=== PATIENT | male | born 1990 | race Caucasian/White ===

== ENCOUNTER 2023-04-18 05:28 | Emergency (ER) | payer BC ==
[~2023-04-18] VITALS: Ht 180.3 cm; Wt 81.6 kg
[2023-04-18] MEDS ORDERED: ONDANSETRON HCL/PF 4 MG/2 ML VIAL ONE (06:11)
[2023-04-18] MEDS ORDERED: ONDANSETRON HCL/PF 4 MG/2 ML VIAL IVP ONE (06:30)
[2023-04-18] MEDS ORDERED: IV NS 0.9% 1,000 ML BAG IV ONE (06:30)
[2023-04-18 06:53] LABS: BASOPHILS % (AUTO) 0.2 % (0.0-2.0); EOSINOPHILS % (AUTO) 0.6 % (0.0-6.0); HEMATOCRIT 48 % (39-51); HEMOGLOBIN 16.5 g/dL (13.5-17.5); LYMPHOCYTES # (AUTO) 0.4 K/uL (0.8-4.8); LYMPHOCYTES % (AUTO) 5.5 % (20.0-44.0); MEAN CORPUSCULAR HEMOGLOBIN 32 PG (26.0-33.0); MEAN CORPUSCULAR HGB CONC 34 g/dl (31.0-36.0); MEAN CORPUSCULAR VOLUME 94 fL (80-96); MONOCYTES # (AUTO) 0.5 K/uL (0.1-1.30); MONOCYTES % (AUTO) 8.3 % (2.0-12.0); NEUTROPHILS # (AUTO) 5.5 K/uL (1.8-8.9); NEUTROPHILS % (AUTO) 85.4 % (43.0-81.0); PLATELET COUNT (AUTO) 245 K/uL (150-450); RED BLOOD CELL COUNT(AUTO) 5.13 MIL/uL (4.5-6.0); RED CELL DISTRIBUTION WIDTH 12.5 % (11.5-15.0); WHITE BLOOD COUNT (AUTO) 6.5 K/uL (4.3-11.0)
[2023-04-18 07:01] LABS: CALCIUM, SERUM 9.3 mg/dL (8.5-10.1); CREATININE 1.3 mg/dL (0.6-1.3); POTASSIUM 3.9 mmol/L (3.5-5.1)
[2023-04-18 07:06] LABS: ALBUMIN 4.3 g/dL (3.4-5.0); BILIRUBIN,DIRECT 0.2 mg/dL (0.0-0.2); BILIRUBIN,TOTAL 0.9 mg/dL (0.2-1.0); TOTAL PROTEIN, SERUM 8.3 g/dL (6.4-8.2)
[2023-04-18] MEDS ORDERED: CIPR-262 PO (07:27)
[2023-04-18] MEDS ORDERED: LOPE1LIQ56 PO (07:27)
[2023-04-18] MEDS ORDERED: ONDA4TAB5 PO (07:27)
[2023-04-18 07:42] VITALS: BP 118/69; TEMP 98; O2SAT 99
== END 2023-04-18 07:43 | disposition home or self-care (01) ==
LOC: ER 05:32
DX: K52.9 Noninfective gastroenteritis and colitis, unspecified (principal); R11.2 Nausea with vomiting, unspecified
CPT/HCPCS: 99283; 96374; 96361; 85025; 80048; 83690; 80076; 36415; J2405; J7030